=== PATIENT | female | born 1945 | race Two or more races ===

== ENCOUNTER 2022-10-28 00:17 | Emergency (ER) | payer MEDICAID, MEDICARE ==
[~2022-10-28] VITALS: Ht 149.9 cm; Wt 52.9 kg
[2022-10-28 00:44] VITALS: BP 155/66; PULSE 88; RESP 18; O2SAT 94
== END 2022-10-28 02:40 | disposition left against medical advice (07) ==
LOC: ER 00:17
DX: R51.9 Headache, unspecified (principal); Z53.29 Procedure and treatment not carried out because of patient's decision for other reasons
CPT/HCPCS: 70450

== ENCOUNTER 2023-01-03 09:52 | Emergency (ER) | payer MEDICARE, MEDICAID ==
[~2023-01-03] VITALS: Ht 152.4 cm; Wt 61.0 kg
[2023-01-03 11:07] VITALS: BP 163/72; PULSE 76; RESP 16; O2SAT 93
[2023-01-03 14:16] LABS: Urine Bacteria NONE SEEN /hpf (None Seen); Urine Blood Negative /uL (Negative); Urine Clarity Clear (Clear); Urine Color Colorless (Yellow); Urine Hyaline Cast FEW /lpf (0 - 2); Urine Protein, UAD Negative (Negative); Urine Specific Gravity 1.013 (1.001-1.035); Urine Urobilinogen Normal (Negative); Urine WBC 12 /hpf (0 - 5)
== END 2023-01-03 20:03 | disposition left against medical advice (07) ==
LOC: ER 09:52
DX: R10.30 Lower abdominal pain, unspecified (principal); Z53.21 Procedure and treatment not carried out due to patient leaving prior to being seen by health care provider
CPT/HCPCS: 81001

== ENCOUNTER 2023-06-21 15:12 | Emergency (ER) | payer MEDICARE, MEDICAID ==
[~2023-06-21] VITALS: Ht 149.9 cm; Wt 62.5 kg
[2023-06-21] MEDS ORDERED: METR-344 PO (18:33)
[2023-06-21] MEDS ORDERED: CIPR-173 PO (18:33)
[2023-06-21] MEDS ORDERED: NAP500T GT (18:33)
[2023-06-21 23:21] VITALS: BP 137/48; PULSE 88; RESP 16; TEMP 98.5; O2SAT 95
== END 2023-06-21 23:14 | disposition home or self-care (01) ==
LOC: EDBD 15:12 → ER 15:12 → EDUNIT# 15:12 → ER 23:14
DX: K57.32 Diverticulitis of large intestine without perforation or abscess without bleeding (principal)
CPT/HCPCS: 74176; 93005

== ENCOUNTER 2023-06-21 15:57 | Emergency (ER) | payer MEDICARE, MEDICAID ==
[2023-06-21 17:48] LABS: Urine Bacteria None Seen /hpf (None Seen)
[2023-06-21] MEDS ORDERED: METR-344 PO (18:33)
[2023-06-21] MEDS ORDERED: CIPR-173 PO (18:33)
[2023-06-21] MEDS ORDERED: NAP500T GT (18:33)
[2023-06-21 18:37] LABS: Urine Blood Negative /uL (Negative); Urine Clarity Clear (Clear); Urine Color Light-Yellow (Yellow); Urine Protein, UAD Negative (Negative); Urine Specific Gravity 1.008 (1.001-1.035); Urine Urobilinogen Normal (Negative); Urine WBC <1 /hpf (0 - 5); Urine pH 6.5 (5.0-9.0)
== END 2023-06-21 16:30 | disposition left against medical advice (07) ==
LOC: ER 15:57
DX: M79.10 Myalgia, unspecified site (principal); Z53.21 Procedure and treatment not carried out due to patient leaving prior to being seen by health care provider
CPT/HCPCS: 81001